=== PATIENT | female | born 1990 | race Caucasian/White ===

== ENCOUNTER 2017-11-22 14:46 | Outpatient (CLI) | payer OTHER ==
[~2017-11-22] VITALS: Ht 167.6 cm; Wt 125.0 kg
[2017-11-22] MEDS ORDERED: ONDANSETRON 2MG/ML, 2ML IVPush PRN (15:30)
[2017-11-22] MEDS ORDERED: PLEASE ENTER ALLERGIES MC SCH (15:30)
[2017-11-22] MEDS ORDERED: LACTATED RINGERS 1,000 ML IVBOLUS ONE (15:30)
[2017-11-22] MEDS ORDERED: ONDANSETRON 2MG/ML, 2ML ONE (15:37)
[2017-11-22 18:42] LABS: CLOSTRIDIUM DIFFICILE ANTIGEN NEGATIVE; CLOSTRIDIUM DIFFICILE TOXIN NEGATIVE (Negative)
== END 2017-11-22 19:20 | disposition home or self-care (01) ==
LOC: LDOP 14:46
PROVIDERS: ATTEND Obstetrics & Gynecology Female Pelvic Medicine and Reconstructive Surgery
DX: O26.893 Other specified pregnancy related conditions, third trimester (principal); R11.10 Vomiting, unspecified; Z3A.28 28 weeks gestation of pregnancy
CPT/HCPCS: 59025; 76815; 76819; 87046; 87324; 87899; 99201; J2405; J7120; G0463